=== PATIENT | female | born 1980 | race Caucasian/White ===

== ENCOUNTER 2018-12-12 10:39 | Emergency (ER) | payer OTHER ==
[2018-12-12 10:59] VITALS: BP 120/75; PULSE 72; TEMP 98.3; BMI 20.7
[2018-12-12 11:34] LABS: URINE APPEARANCE CLEAR; URINE BILIRUBIN NEGATIVE (<2.0 mg/dL); URINE COLOR YELLOW; URINE GLUCOSE (UA) NEGATIVE (NEGATIVE); URINE KETONE TRACE (NEGATIVE); URINE LEUK ESTERASE NEGATIVE (NEGATIVE); URINE NITRITE NEGATIVE (NEGATIVE); URINE PROTEIN NEGATIVE (NEGATIVE); URINE UROBILINOGEN NEGATIVE mg/dL (0.2-1.0)
[2018-12-12 11:36] LABS: EPI CELLS RARE /HPF (FEW); HCG,QUALITATIVE URINE Negative; URINE MUCUS RARE
[2018-12-12] MEDS ORDERED: SODIUM CHLORIDE 1,000 ML IV STA (12:08)
[2018-12-12] MEDS ORDERED: ONDANSETRON 4 MG/2 ML VIAL IVPUSH ONE (12:08)
[2018-12-12] MEDS ORDERED: KETOROLAC TROMETHAMINE 15 MG/ML VIAL IVPUSH ONE (12:10)
[2018-12-12] MEDS ORDERED: KETOROLAC TROMETHAMINE 15 MG/ML VIAL ONE (12:12)
[2018-12-12] MEDS ORDERED: ONDANSETRON 4 MG/2 ML VIAL ONE (12:12)
--- NOTE | 2018-12-12 12:27 | PDOC ---
History of Present Illness - General Chief Complaint: Pain Stated Complaint: ABDOMINAL PAIN Time Seen by Provider: 12/12/18 12:05 History Source: Patient Exam Limitations: No Limitations - History of Present Illness Initial Comments: 12/12/18 12:31 38 yo F with no past medical history presenting with lower abdominal pain midline with abrupt onset at 9 am. Patient states she was dropping off her kids when the pain occurred. Denies trauma or inciting musculoskeletal event. Per the patient, the pain is 10/10, cramping like, distribution lower abdominal with lower back pain bilaterally in both, and no aggravating or relieving factors. Denies hx of nephrolithiasis. Endorses hx of ovarian cyst, but unknown size or laterality. Denies vaginal bleeding and discharge. Denies the following : fever, chills, ears/nose/throat pain, vomiting, chest pain, SOB, hematochezia , dysuria, hematuria, and leg pain/swelling. Not currently on contraceptives. Endorses nausea and diarrhea. Recent travel to [place] last week. Shx: None Allergies: NKDA Meds: None Social: Denies tobacco, alcohol, and substance abuse. Past History - Past Medical History Allergies/Adverse Reactions: Allergies Allergy/AdvReac Type Severity Reaction Status Date / Time No Known Allergies Allergy Verified 12/12/18 10:56 Home Medications: Ambulatory Orders Ibuprofen [Motrin -] 600 mg PO QID PRN #30 tablet 12/12/18 COPD: No - Suicide/Smoking/Psychosocial Hx Smoking History: Never smoked Hx Alcohol Use: No Drug/Substance Use Hx: No Review of Systems - Review of Systems Able to Perform ROS?: Yes Is the patient limited [place] proficient: No Constitutional: No: Chills, Diaphoresis, Fever, Weakness HEENTM: No: Eye Pain, Ear Pain, Nose Pain, Throat Pain Respiratory: No: Cough, Shortness of Breath Cardiac (ROS): No: Chest Pain, Lightheadedness, Palpitations, Syncope, Chest Tightness ABD/GI: Yes: Nausea, Abdominal cramping. No: Constipated, Diarrhea, Rectal Bleeding, Vomiting, Tarry Stools : Yes: Flank Pain. No: Burning, Dysuria, Hematuria, Incontinence Musculoskeletal: Yes: Back Pain. No: Joint Pain, Muscle Weakness, Neck Pain Integumentary: No: Bruising, Erythema, Rash Neurological: No: Headache, Numbness, Tingling, Tremors, Ataxia, Dizziness Psychiatric: No: Change in Appetite Endocrine: No: Unexplained Weight Gain Hematologic/Lymphatic: No: Anemia *Physical Exam - Vital Signs Last Vital Signs Temp Pulse Resp BP Pulse Ox 98.3 F 72 16 120/75 99 12/12/18 10:56 12/12/18 10:56 12/12/18 10:56 12/12/18 10:56 12/12/18 10:56 - Physical Exam General Appearance: Yes: Nourished, Appropriately Dressed, Thin. No: Apparent Distress HEENT: positive: EOMI, BRYSON, Normal Voice, Symmetrical, Pharynx Normal, Hearing Grossly Normal. negative: Pale Conjunctivae, Scleral Icterus (R), Scleral Icterus (L), Muffled/Hoarse voice, Pharyngeal Erythema, Tonsillar Exudate, Tonsillar Erythema, Excessive drooling Neck: positive: Trachea midline, Supple. negative: Tender, Lymphadenopathy (R) , Lymphadenopathy (L), Tender lateral, Tender midline Respiratory/Chest: positive: Lungs Clear, Normal Breath Sounds. negative: Chest Tender, Respiratory Distress, Accessory Muscle Use, Rales, Rhonchi, Stridor, Wheezing Cardiovascular: positive: Regular Rhythm, Regular Rate, S1, S2. negative: Systolic Murmur Female Pelvic Exam: positive: normal external exam, cervical os closed, normal adnexa. negative: CMT, discharge, lesions, adnexal tenderness, vaginal bleeding Gastrointestinal/Abdominal: positive: Normal Bowel Sounds, Flat, Soft. negative : Tender Lymphatic: negative: Adenopathy Musculoskeletal: positive: Normal Inspection, CVA Tenderness, CVA Tenderness (L) . negative: CVA Tenderness (R), Vertebral Tenderness Extremity: positive: Normal Capillary Refill, Normal Inspection, Normal Range of Motion. 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 NML intact, Fully Oriented, Alert, Normal Mood/ Affect, Normal Response, Motor Strength 5/5 Moderate Sedation - Procedure Monitoring Vital Signs: Procedure Monitoring Vital Signs Temperature 98.3 F 12/12/18 10:56 Pulse Rate 72 12/12/18 10:56 Respiratory Rate 16 12/12/18 10:56 Blood Pressure 120/75 12/12/18 10:56 O2 Sat by Pulse Oximetry (%) 99 12/12/18 10:56 ED Treatment Course - LABORATORY CBC & Chemistry Diagram: 12/12/18 12:15 12/12/18 12:20 - ADDITIONAL ORDERS Additional order review: Laboratory Results 12/12/18 11:20 Urine Color Yellow Urine Appearance Clear Urine pH 5.0 Ur Specific [place] 1.017 Urine Protein Negative Urine Glucose (UA) Negative Urine Ketones Trace H Urine Blood 3+ H Urine Nitrite Negative Urine Bilirubin Negative Urine Urobilinogen Negative Ur Leukocyte Esterase Negative Urine WBC (Auto) 4 Urine RBC (Auto) 136 Ur Epithelial Cells Rare Urine Mucus Rare Urine HCG, Qual Negative - Medications Given in the ED: ED Medications Discontinued Medications Generic Name Dose Route Start Last Admin Trade Name Freq PRN Reason Stop Dose Admin Ketorolac Tromethamine 15 mg 12/12/18 12:10 12/12/18 12:26 Toradol Injection - IVPUSH 12/12/18 12:11 15 mg ONCE ONE Administration Ondansetron HCl 4 mg 12/12/18 12:08 12/12/18 12:26 Zofran Injection IVPUSH 12/12/18 12:09 4 mg ONCE ONE Administration Medical Decision Making - Medical Decision Making 12/12/18 12:37 38 yo F with no past medical history presenting with lower abdominal pain midline with abrupt onset at 9 am. Initial vitals: Initial Vital Signs Temp Pulse Resp BP Pulse Ox 98.3 F 72 16 120/75 99 12/12/18 10:56 12/12/18 10:56 12/12/18 10:56 12/12/18 10:56 12/12/18 10:56 Work up: ddx: nephrolithiasis vs UTI vs msk strain vs ovarian cyst vs ectopic Laboratory Tests 12/12/18 12/12/18 12/12/18 11:20 12:15 12:20 WBC 15.9 H RBC 4.23 Hgb 13.1 Hct 37.9 MCV 89.5 MCH 31.0 MCHC 34.6 RDW 12.7 Plt Count 294 MPV 9.3 Absolute Neuts (auto) 14.1 H Neutrophils % 88.7 H Lymphocytes % 7.4 L Monocytes % 3.5 L Eosinophils % 0.2 Basophils % 0.2 Nucleated RBC % 0 Sodium 135 L Potassium 4.0 Chloride 102 Carbon Dioxide 24 Anion Gap 8 BUN 19 H Creatinine 0.8 Creat Clearance w eGFR 79.85 Random Glucose 104 Calcium 9.5 Total Bilirubin 0.6 AST 13 L ALT 20 Alkaline Phosphatase 45 Total Protein 7.4 Albumin 4.4 Urine Color Yellow Urine Appearance Clear Urine pH 5.0 Ur Specific [place] 1.017 Urine Protein Negative Urine Glucose (UA) Negative Urine Ketones Trace H Urine Blood 3+ H Urine Nitrite Negative Urine Bilirubin Negative Urine Urobilinogen Negative Ur Leukocyte Esterase Negative Urine WBC (Auto) 4 Urine RBC (Auto) 136 Ur Epithelial Cells Rare Urine Mucus Rare Urine HCG, Qual Negative UA shows blood 3+ without positive leuk esterase with negative with [address] spiral shows non obstructing stone in the right renal lower pole measuring 4 mm and obstructing stone at the left UVJ measuring 4 mm with mild left hydrouteronephrosis. Patient was given a copy of the CT results. patient's pain was treated with zofran and toradol with significant improvement in symptoms. given a referral to a urologist and told to follow up with them within 1 week after discharge. patient was stable at discharge. Dispo: Discharge *DC/Admit/Observation/Transfer Diagnosis at time of Disposition: Nephrolithiasis - Discharge Dispostion Disposition: HOME Decision to Admit order: No - Prescriptions Prescriptions: Ibuprofen [Motrin -] 600 mg PO QID PRN #30 tablet PRN Reason: Pain - Referrals Referrals: Isadora Bernstein MD [Primary Care Provider] - Dionte Saldaña MD., [Staff Physician] - - Patient Instructions Printed Discharge Instructions: Kidney Stones -- Adult Additional Instructions: you were seen in the emergency department and found to have a kidney stone. please take the medication as prescribed. please return to the emergency department if you have worsening pain or new concerning symptoms such as fever, pain with urination, significant bleeding in the urine, and intractable nausea and vomiting. please follow up with your primary medical doctor in 1 week after discharge. if you pain does not resolve within 5-7 days, please follow up with the urologist that was referred to you. thank you. - Post Discharge Activity Forms/Work/School Notes: Back to Work
[2018-12-12 12:37] LABS: BASO % 0.2 % (0-2.0); EOS % 0.2 % (0-4.5); HEMATOCRIT 37.9 % (32.4-45.2); HEMOGLOBIN 13.1 GM/dL (10.7-15.3); LYMPH % 7.4 % (8-40); MCHC 34.6 g/dl (32.0-36.0); MEAN CELL VOLUME 89.5 fl (80-96); MEAN PLT VOLUME 9.3 fl (7.5-11.1); MONO % 3.5 % (3.8-10.2); NEUT % 88.7 % (42.8-82.8); PLATELET COUNT 294 K/MM3 (134-434); RBC 4.23 M/mm3 (3.60-5.2); RDW 12.7 % (11.6-15.6); WHITE BLOOD COUNT 15.9 K/mm3 (4.0-10.0)
[2018-12-12 13:00] LABS: ALBUMIN 4.4 g/dl (3.4-5.0); ALK PHOS 45 U/L (45-117); ANION GAP 8 MMOL/L (8-16); BILIRUBIN,TOTAL 0.6 mg/dL (0.2-1); BLOOD UREA NITROGEN 19 mg/dL (7-18); CALCIUM 9.5 mg/dL (8.5-10.1); CHLORIDE 102 mmol/L (98-107); CO2 24 mmol/L (21-32); CREATININE 0.8 mg/dL (0.55-1.3); GLUCOSE,RANDOM 104 mg/dL (74-106); SGOT/AST 13 U/L (15-37); SGPT/ALT 20 U/L (13-61); SODIUM 135 mmol/L (136-145); TOT PROT 7.4 g/dl (6.4-8.2)
--- NOTE | 2018-12-12 13:21 | PDOC ---
Attending Attestation - Resident Resident Name: Lan Phipps - ED Attending Attestation I have performed the following: I have examined & evaluated the patient, The case was reviewed & discussed with the resident, I agree w/resident's findings & plan, Exceptions are as noted - HPI HPI: 12/12/18 12:12 The patient is a 38 year old female with a significant PMH of ovarian cysts who presents to the emergency department with abdominal cramping today. Patient describes the abdominal cramping as a 10/10 in severity, localized across the lower abdomen bilaterally with radiation to the bilateral lower back. Denies any heavy lifting or recent trauma. Last menstrual period was one week ago. Patient denies any vaginal bleeding or discharge. Not currently on oral contraceptives. Denies any history of kidney stones. Denies any prior abdominal surgeries. The patient denies chest pain, shortness of breath, headache and dizziness. Denies fever, chills, nausea, vomit, diarrhea and constipation. Denies dysuria, frequency, urgency and hematuria. Allergies: NKA Past surgical history: None reported. Social history: No reported alcohol, drug or cigarette use. PCP: Dr. Bernstein - Physicial Exam PE: 12/12/18 13:21 agree with resident exam - Medical Decision Making 12/12/18 11:21 38yo F presents to the ED with lower abd pain. Appears colicky, is pacing by the stretcher. Vitals wnl. Exam with mild suprapubic ttp. DDx includes renal colic vs ovarian cyst vs UTI. Plan -pelvic exam -labs -UA -consider TVUS or spiral ct -reassess 12/12/18 14:26 Pelvic exam wnl, no adnexal or midline ttp No discharge CBC with WBC 15.9, remaining labs wnl UA with many RBCs, but few whites, no nitrite or LE Concerning for renal colic spiral CT with 4mm obstructing stone at L UVJ Pain has completely resolved with toradol, fluids Pt requests DC home Urology f/u given plan for ibuprofen q6 PRN pain Return precautions given Pt clinically stable for DC home I discussed the physical exam findings, ancillary test results and final diagnoses with the patient. I answered all of the patient's questions. The patient was satisfied with the care received and felt comfortable with the discharge plan and treatment plan. The patient will call their primary care physician within 24 hours to arrange follow-up and will return to the Emergency Department with any new, persistent or worsening symptoms.
== END 2018-12-12 14:40 | disposition home or self-care (01) ==
LOC: JER 10:39
PROC: 3E0333Z Introduction of Anti-inflammatory into Peripheral Vein, Percutaneous Approach (ICD-10-PCS; principal; 2018-12-12)
PROC: 3E033GC Introduction of Other Therapeutic Substance into Peripheral Vein, Percutaneous Approach (ICD-10-PCS; 2018-12-12)
PROC: 3E0337Z Introduction of Electrolytic and Water Balance Substance into Peripheral Vein, Percutaneous Approach (ICD-10-PCS; 2018-12-12)
DX: N20.0 Calculus of kidney (principal)
CPT/HCPCS: 36415; 74176-TC; 80053; 81003; 81015; 84703; 85025; 87081; 87086; 87186; 99282-25; J7030